=== PATIENT | female | born 1960 | race Caucasian/White ===

== ENCOUNTER 2016-08-12 21:59 | Inpatient (IN) | payer BC, MEDICAID ==
[~2016-08-12] VITALS: Ht 167.6 cm; Wt 86.2 kg
[~2016-08-12 21:59] MED LIST: ALPR0.5T6 PO; Bisacodyl PR; LORA0.5T96 PO; METH-38 PO; OXYC1TAB9 PO; POLY17PO29 PO; ZOLP10TA PO
[2016-08-12 22:33] LABS: BASO # 0.1 x10^3/uL (0.0-0.2); BASO % 1 % (0-3); EOS % 3 % (0-3); HEMATOCRIT 40.4 % (36.0-47.0); HEMOGLOBIN 13.1 g/dL (12.0-15.5); LYMPH # 3.4 x10^3/uL (1.0-4.8); LYMPH % 52 % (24-48); MEAN CORPUSCULAR HEMOGLOBIN 29 pg (25-35); MEAN CORPUSCULAR HGB CONC 33 g/dL (31-37); MEAN CORPUSCULAR VOLUME 90 fL (79-100); MONO % 10 % (0-9); NEUT % 34 % (31-73); PLATELET COUNT 226 x10^3/uL (140-400); RED BLOOD COUNT 4.49 x10^6/uL (3.50-5.40); RED CELL DISTRIBUTION WIDTH 15.2 % (11.5-14.5); WHITE BLOOD COUNT 6.5 x10^3/uL (4.0-11.0)
[2016-08-12] MEDS ORDERED: ONDANSETRON PF 4 MG/2 ML VIAL. IV ONE (23:00)
[2016-08-12] MEDS ORDERED: HYDROmorphone 2 MG/ML VIAL IV ONE (23:00)
[2016-08-12] MEDS ORDERED: KETOROLAC 15 MG/ML VIAL. IV ONE (23:00)
[2016-08-12] MEDS ORDERED: CYCLOBENZAPRINE 10 MG TABLET. PO ONE (23:00)
--- NOTE | 2016-08-12 23:18 | RAD ---
CT head without intravenous contrast History: Atraumatic neck pain and stiffness. Comparison: None. Technique: Axial images are obtained of the head from the skull base through the vertex without IV contrast. Exposure: One or more of the following individualized dose reduction techniques were utilized for this examination: 1. Automated exposure control 2. Adjustment of the mA and/or kV according to patient size 3. Use of iterative reconstruction technique Findings: The ventricles are appropriate in size, shape, and location for the patient's age. No obvious intracranial mass, mass-effect, midline shift, hemorrhage or obvious acute infarction is identified. Basilar cisterns are patent. Bone windows demonstrate no acute calvarial abnormality. The visualized paranasal sinuses appear clear. Impression: 1. No acute intracranial process. CT cervical spine Technique: Noncontrast CT of the cervical spine was performed using helical technique. Axial, sagittal, coronal reconstructions were obtained. Exposure: One or more of the following individualized dose reduction techniques were utilized for this examination: 1. Automated exposure control 2. Adjustment of the mA and/or kV according to patient size 3. Use of iterative reconstruction technique Findings: There is no evidence of acute fracture or acute malalignment involving the cervical spine. No prevertebral soft tissue swelling is identified. Multilevel degeneration is seen with facet and uncovertebral hypertrophy. This likely left neural foraminal narrowing C3-4 . Impression: 1. Relatively mild multilevel degeneration. 2. No evidence of acute traumatic injury involving the cervical spine. Electronically signed by: Ramsey Munoz MD (08/12/2016 11:14 PM)
[2016-08-12 23:49] LABS: CREATININE 1.2 mg/dL (0.6-1.0); GFR 46.1; POTASSIUM 4.1 mmol/L (3.5-5.1)
[2016-08-12 23:55] LABS: ALBUMIN 3.6 g/dL (3.4-5.0); TOTAL BILIRUBIN 0.3 mg/dL (0.2-1.0); TOTAL PROTEIN 7.1 g/dL (6.4-8.2)
[2016-08-13] VITALS (7 sets, daily range): BP systolic 82–132; BP diastolic 38–61
[2016-08-13] MEDS ORDERED: HYDROmorphone 2 MG/ML VIAL IV ONE (00:30)
[2016-08-13] MEDS ORDERED: ONDANSETRON PF 4 MG/2 ML VIAL. IV ONE (00:30)
[2016-08-13] MEDS ORDERED: ACETAMINOPHEN 325 MG TABLET. PO PRN (00:30)
--- NOTE | 2016-08-13 03:18 | PHYS DOC ---
Past Medical History Past Medical History: Anxiety, Arthritis, COPD, Fibromyalgia, Hypertension Additional Past Medical Histor: pneumonia, KIDNEY DISEASE Past Surgical History: Cholecystectomy, Hysterectomy Additional Past Surgical Histo: BENIGN TUMOR REMOVAL Alcohol Use: None Drug Use: None Adult General Chief Complaint Chief Complaint: MULTIPLE COMPLAINTS HPI HPI Patient is a 56 year old female who presents here today secondary to severe pain to her neck for approximately 2 weeks now. Patient is here with her sisters been taking care of her since then. Patient reports that about 3 days ago she fell backwards onto her bed and been having increasing pain since. Patient's sister reports that she's been taking care of her and over the last couple days she has been having a hard time walking to the bathroom secondary to the pain. Patient reports she has severe pain to her neck is unable to turn to the left or to the right. Patient denies any other symptomology. Patient has any fevers shakes chills nausea vomiting diarrhea chest pain or shortness of breath. Patient denies any recent fevers or evidence of meningitis. Patient denies any recent injuries. Patient denies any new medications. Patient's tetanus status is up-to-date. Patient reports that she spoke to Dr. Batista and she was told to come to the ER for likely admission for pain management. Patient is a history significant for bilateral tubal ligation and her gallbladder taken out. Patient reports that up until 2 weeks ago that she lives alone was able to care for self currently she is not able to manage and around anymore. Patient's physical exam was significant for tenderness to palpation to her neck. Patient has decreased range of motion secondary to discomfort and pain. Patient is neurologically intact. Patient's radial nerves to 12 are all intact. Patient has good strength in her upper or lower extremities. Patient is alert awake oriented 3. Patient's heart was regular rate and rhythm. Lungs were clear. Abdomen was benign. Patient had a CT scan of her C-spine which revealed no acute pathology. Case was discussed with Dr. Batista and he agrees with admitting patient to the hospital for further pain management. While in the ED patient received multiple doses of narcotic pain medicines as well as muscle relaxants without any significant relief in her discomfort. Patient and family requested that she be admitted. Assessment and plan 48-year-old female who presents to the ER today for further assistance with her subacute neck pain. Patient reports the pain is atraumatic. Patient's filled multiple doses of pain medicines in the ED. Patient will need to be admitted for pain control. Case was discussed with Dr. Batista and he is in agreement with the current plan. Review of Systems Review of Systems Review of symptoms Constitutional: Denies fever or chills [] Eyes: Denies change in visual acuity, redness, or eye pain [] All other review systems are negative except as documented in the history of present illness portion. Physical exam: Constitutional: Well developed, well nourished, no acute distress, non-toxic appearance. [] HENT: Normocephalic, atraumatic, Eyes: conjunctiva normal, no discharge. [] Neck: See above. Cardiovascular:Heart rate regular rhythm, Lungs & Thorax: Bilateral breath sounds clear to auscultation [] Abdomen: Bowel sounds normal, soft, no tenderness, no masses, no pulsatile masses. [] Skin: Warm, dry, Back: No tenderness, Extremities: No tenderness, no cyanosis, no clubbing, ROM intact, no edema. [] Neurologic: Alert and oriented X 3, normal motor function, normal sensory function, no focal deficits noted. [] Psychologic: Affect normal, judgement normal, mood normal. [] Current Medications Current Medications Current Medications Medications (Trade) Dose Ordered Sig/Alma Start Time Stop Time Status Last Admin Dose Admin Cyclobenzaprine HCl (Flexeril) 10 mg 1X ONCE 08/12/16 23:00 08/12/16 23:01 DC 08/12/16 22:48 10 MG Hydromorphone HCl (Dilaudid) 1 mg 1X ONCE 08/12/16 23:00 08/12/16 23:01 DC 08/12/16 22:45 1 MG Ketorolac Tromethamine (Toradol) 15 mg 1X ONCE 08/12/16 23:00 08/12/16 23:01 DC 08/12/16 22:43 15 MG Ondansetron HCl (Zofran) 4 mg 1X ONCE 08/12/16 23:00 08/12/16 23:01 DC 08/12/16 22:41 4 MG Allergies Allergies Allergies Coded Allergies Type Severity Reaction Last Updated Verified hydrocodone Adverse Reaction Intermediate Nausea and Vomiting 08/07/15 Yes ibuprofen Adverse Reaction Intermediate 08/12/16 Yes morphine Adverse Reaction Intermediate 08/12/16 Yes Current Patient Data Vital Signs Vital Signs Date Time Temp Pulse Resp B/P (MAP) Pulse Ox O2 Delivery O2 Flow Rate FiO2 08/13/16 00:00 66 124/70 (88) 95 Room Air 08/12/16 22:45 28 08/12/16 22:10 97.9 97.9 Lab Values Laboratory Tests Test 08/12/16 22:15 08/12/16 23:32 White Blood Count 6.5 x10^3/uL (4.0-11.0) Red Blood Count 4.49 x10^6/uL (3.50-5.40) Hemoglobin 13.1 g/dL (12.0-15.5) Hematocrit 40.4 % (36.0-47.0) Mean Corpuscular Volume 90 fL (79-100) Mean Corpuscular Hemoglobin 29 pg (25-35) Mean Corpuscular Hemoglobin Concent 33 g/dL (31-37) Red Cell Distribution Width 15.2 % (11.5-14.5) H Platelet Count 226 x10^3/uL (140-400) Neutrophils (%) (Auto) 34 % (31-73) Lymphocytes (%) (Auto) 52 % (24-48) H Monocytes (%) (Auto) 10 % (0-9) H Eosinophils (%) (Auto) 3 % (0-3) Basophils (%) (Auto) 1 % (0-3) Neutrophils # (Auto) 2.2 x10^3uL (1.8-7.7) Lymphocytes # (Auto) 3.4 x10^3/uL (1.0-4.8) Monocytes # (Auto) 0.6 x10^3/uL (0.0-1.1) Eosinophils # (Auto) 0.2 x10^3/uL (0.0-0.7) Basophils # (Auto) 0.1 x10^3/uL (0.0-0.2) Sodium Level 143 mmol/L (136-145) Potassium Level 4.1 mmol/L (3.5-5.1) Chloride Level 109 mmol/L (98-107) H Carbon Dioxide Level 24 mmol/L (21-32) Anion Gap 10 (6-14) Blood Urea Nitrogen 23 mg/dL (7-20) H Creatinine 1.2 mg/dL (0.6-1.0) H Estimated GFR (Cockcroft-Gault) 46.1 BUN/Creatinine Ratio 19 (6-20) Glucose Level 126 mg/dL (70-99) H Calcium Level 9.0 mg/dL (8.5-10.1) Total Bilirubin 0.3 mg/dL (0.2-1.0) Aspartate Amino Transferase (AST) 18 U/L (15-37) Alanine Aminotransferase (ALT) 21 U/L (14-59) Alkaline Phosphatase 77 U/L (46-116) Troponin I Quantitative < 0.017 ng/mL (0.000-0.055) RN-Kgm-B-Type Natriuretic Peptide 204 pg/mL (0-124) H Total Protein 7.1 g/dL (6.4-8.2) Albumin 3.6 g/dL (3.4-5.0) Albumin/Globulin Ratio 1.0 (1.0-1.7) Laboratory Tests 08/12/16 22:15 Laboratory Tests 08/12/16 23:32 EKG EKG [] Radiology/Procedures Radiology/Procedures [] Course & Med Decision Making Course & Med Decision Making Pertinent Labs and Imaging studies reviewed. (See chart for details) [] Dragon Disclaimer Dragon Disclaimer This electronic medical record was generated, in whole or in part, using a voice recognition dictation system. Departure Departure Impression: Primary Impression: Chest pain Additional Impression: Intractable pain Disposition: ADMITTED INPATIENT Admitting Physician: Billy Batista Condition: STABLE Referrals: FROY BATISTA MD (PCP) Problem Qualifiers LAURO RAMOS MD Aug 13, 2016 03:17
[2016-08-13] MEDS: ONDANSETRON PF 4 MG/2 ML VIAL. IV PRN ×2 (06:45→17:23)
[2016-08-13] MEDS: fentaNYL PF VIAL 100 MCG/2 ML VIAL IV PRN ×3 (08:15→13:47)
--- NOTE | 2016-08-13 08:44 | RAD ---
EXAM: Chest one view. HISTORY: Chest pain, fall. COMPARISON: 08/06/2015. FINDINGS: A frontal view of the chest is obtained. Linear opacity along the left heart border has a correlate on the 05/30/2015 study and is likely epicardial fat pad/scarring. There is no pneumothorax or pleural effusion. The heart is not enlarged. There is a chronic healed right rib fracture. IMPRESSION: 1. No confluent infiltrates.
--- NOTE | 2016-08-13 09:00 | ACF ---
Admission Forms Criteria CHEST PAIN Clinical Indications for Admission to Inpatient Care (Place 'X' for any and all applicable criteria): Admission is indicated for chest pain and ANY ONE of the following(1)(2)(3)(4)(5 ): [ ]I. Angina with acute coronary syndrome (Also use Myocardial Infarction or Angina guideline) [ ]II. Hemodynamic instability [ ]III. Angina needing acute intervention as indicated by ALL of the following( 11)(12): [ ]a) Unstable angina is present as indicated by angina that is ANY ONE of the following: [ ]i) New onset [ ]ii) Nocturnal [ ]iii) Prolonged at rest [ ]iv) Progressive [ ]b) Angina warrants acute intervention as indicated by ANY ONE of the following: [ ]i) Recurrent angina (e.g, not responding as previously to treatment) [ ]ii) Angina at rest or with low-level activities despite initial medical therapy [ ]iii) New or presumably new ST-segment depression on ECG [ ]iv) Signs or symptoms of heart failure (eg, dyspnea, pulmonary edema) [ ]v) New or worsening mitral regurgitation [ ]vi) Hemodynamic instability [ ]vii) Dangerous arrhythmia (eg, sustained ventricular tachycardia) [ ]viii) History of percutaneous coronary intervention within 6 months [ ]ix) History of coronary artery bypass graft surgery [ ]x) ROSA ISELA risk score of 2 or greater[A] [ ]xi) History of Diabetes(14) [ ]xii) High-risk cardiac ischemia findings on noninvasive testing (e.g, echocardiogram, treadmill testing, nuclear scan) [ ]xiii) Chronic renal insufficiency (ie, estimated GFR less than 60 mL/min/1.732m) [ ]xiv) Left ventricular ejection fraction less than 40% [ ]IV. Evidence of GA (eg, cardiac biomarkers positive, ST-segment elevation on ECG) also use Myocardial Infarction Criteria Form. [ ]V. Pulmonary edema [ ]. Respiratory distress [ ]VII. Chest pain indicative of serious diagnosis other than coronary artery disease (eg, aortic dissection) [ ]VIII. Contraindications and/or Inappropriate clinical situations for Observational Care in patients with Chest Pain, when ANY ONE of the following is required: [ ]a) Patient with risk factor for pulmonary embolism, acute coronary syndrome and myocardial infarction (18) [ ]b) Patient with Pulmonary embolism require an average LOS of 4.3 days, therefore emergency department observation management is inappropriate 18,23 [ ]c) Painful condition/s in the elderly, have the highest rate of recidivism after emergency department observation management (10.8%) 20,21,22 [ ]d) Elevated cardiac biomarker requires intensive and exhaustive care (19) [X]IX. General contraindications and/or Inappropriate clinical situations for Observational Care in patients with Chest Pain, when ANY ONE of the following is required: [X]a) Prediction of prolongation of LOS based on ANY ONE of the following may be considered as a contraindication for observational care 2, 3, 4, 5, 6, 7, 8, 9, 10, 11 [ ]i) Age > 65 yrs. [ ]ii) Patient arriving by ambulance [ ]iii) Patient with high acuity [ ]iv) Patient requiring vital sign monitoring [X]v) Patient on IV medication [ ]b) Systolic blood pressures 180mmHg 3,12 [ ]c) Patient with altered mental status including delirium and other alteration of consciousness, (3) [ ]d) Patient whose discharge disposition will be to a retirement home or rehabilitation home should not be managed in Emergency Department Observation Unit. CMS rule requires 3 days hospital stay before such placement. 3,13 [ ]e) Patient with failure to thrive due to broad array of etiologies 3,16,17 [ ]f) Inability to ambulate 3,14 Extended stay beyond goal length of stay may be needed for (1)(28): [ ]a) Specific condition diagnosed after evaluation (eg, pulmonary embolism, aortic dissection) [ ]b) Unstable angina [ ]c) Continued suspicion of acute coronary syndrome with inability to complete needed cardiac evaluation (eg, patient clinically unable to undergo stress testing) [ ]d) Myocardial infarction (Contents from ANGINA and CHEST PAIN clinical indications for admission to inpatient care have been integrated in this form) The original [facility] content created by [employer] has been revised. The portions of the content which have been revised are identified through the use of italic text or in bold, and [facility] has neither reviewed nor approved the modified material. All other unmodified content is copyright [facility]. Please see references footnoted in the original [facility] edition 2016 Admission Criteria Met?: Yes ANITA BAKER Aug 13, 2016 09:00
[2016-08-13] MEDS ORDERED: ZOLP10TA PO (10:21)
[2016-08-13] MEDS ORDERED: DICL1TAB5 PO (10:21)
[2016-08-13] MEDS ORDERED: FOLI1TAB16 PO (10:21)
[2016-08-13] MEDS ORDERED: METH2.5T PO (10:21)
[2016-08-13] MEDS ORDERED: LOSA50TA2 PO (10:21)
[2016-08-13] MEDS ORDERED: oxyCODONE/APAP 10/325 1 TAB TABLET PO PRN (10:30)
[2016-08-13] MEDS ORDERED: LOSARTAN POTASSIUM 50 MG TABLET. PO SCH (12:00)
[2016-08-13] MEDS ORDERED: FOLIC ACID 1 MG TABLET. PO SCH (12:00)
[2016-08-13] MEDS: ASPIRIN/DIPYRIDAMOLE 200/25MG CAP.ER.12H. PO SCH ×2 (12:05→21:00)
--- NOTE | 2016-08-13 12:13 | EKG ---
[facility] [address] [place] [address] Test Date: 2016-08-12 Test Time: 22:12:13 Pat Name: LITZY ZULETA Department: Room: 426 1 Gender: F Bee Raiser: : 1960 Requested By: LAURO RAMOS Order Number: [id number] Reading MD: Robert Franz Measurements Intervals [place] Rate: 76 P: 34 LA: 128 QRS: 38 QRSD: 128 T: 24 QT: 448 QTc: 509 Interpretive Statements SINUS ARRHYTHMIA COMPLEX(ES) WITH ABERRANT INTRAVENTRICULAR CONDUCTION VENTRICULAR PREMATURE COMPLEX(ES) LEFT BUNDLE BRANCH BLOCK ABNORMAL ECG RI6.01 Compared to ECG 08/06/2015 05:21:53 Left bundle-branch block now present Sinus rhythm no longer present Electronically Signed On 08-15-2016 10:49:03 CDT by Robert Franz
[2016-08-13] MEDS: LIDOCAINE (700MG/PATCH) PATCH. TD SCH (12:20)
[2016-08-13] MEDS ORDERED: BUPIVACAINE MPF 0.25% 10 ML VIAL. IJ ONE (12:45)
[2016-08-13] MEDS ORDERED: methylPREDNISolone ACETATE 40 MG/ML VIAL. IM ONE (12:45)
--- NOTE | 2016-08-13 13:10 | PDOC4 ---
PROCEDURE Procedure At her request,I have injected painful trigger points over right cervical paraspinal muscles with marcaine and depomedrol solution under aseptic skin technique and she tolerated the procedure satisfactorily without any side effects MARY MENDEZ MD Aug 13, 2016 13:10
[2016-08-13] MEDS ORDERED: BUTALB/APAP/CAFEIN 50/325/40MG TABLET. PO PRN (13:15)
--- NOTE | 2016-08-13 13:23 | HP ---
ADMIT DATE: 08/13/2016 ADMISSION DIAGNOSES: 1. Chest pain. 2. Acute torticollis. HISTORY OF PRESENT ILLNESS: This is a 56-year-old white female who over the last 3 days has developed a severe neck pain and has been unable to move her neck. Her sister has been caring for her and she called last evening because she was no longer able to do so. She wanted to bring the patient to the ER for some pain relief, which was done. While in the Emergency Room, review of systems revealed the patient also been having some intermittent chest pain. Her proBNP was a little bit elevated, but despite cyclobenzaprine, hydromorphone IV, ketorolac IV, and Zofran for pain induced vomiting. ER was unable to control her pain. She was hypertensive and with her complaints of chest pain was admitted for further evaluation and treatment. She is still in pain, but the IV meds have ____ some. She ____ turn her head or move her shoulders at this point. She does not seem to have any further chest pain, nausea or vomiting. Her cardiac enzymes are normal. PAST MEDICAL HISTORY: Anxiety, arthritis, COPD, fibromyalgia, hypertension, recently diagnosed stage 3 chronic kidney disease. She has had pneumonia in the past. PAST SURGICAL HISTORY: Include cholecystectomy, hysterectomy, benign tumor removal. SOCIAL HISTORY: Negative for alcohol. Positive for tobacco. ALLERGIES: SHE HAS ALLERGIES TO HYDROCODONE AND MORPHINE. SHE HAS A GI INTOLERANCE TO IBUPROFEN AND IT AGGRAVATED HER CHRONIC RENAL DISEASE. HOME MEDICATIONS: Include alprazolam 0.5 mg t.i.d., losartan 50 mg daily, oxycodone ____ one q.i.d., MiraLax p.r.n., Ambien 10 mg p.r.n., Dulcolax p.r.n. FAMILY HISTORY: Fibromyalgia. REVIEW OF SYSTEMS: GENERAL: Acute pain as mentioned above, she has been taken off of methotrexate due to intolerance. She has not had any headache or viral symptoms. She has had nausea and vomiting related to pain, chest pain, somewhat atypical, nonexertional. LUNGS: She has not had any significant cough or pulmonary symptoms. GASTROINTESTINAL: No diarrhea or constipation has been controlled with medications. SKIN: No rashes or bruising. MUSCULOSKELETAL: Osteoarthritis, rheumatoid arthritis, fibromyalgia. NEUROLOGIC: No headaches or seizures. PSYCHIATRIC: Anxiety. CONSTITUTIONAL: No fever, chills or weight loss. PHYSICAL EXAMINATION: VITAL SIGNS: She is afebrile since admission. Heart rate is normal. Blood pressure is normal. Room air pulse oximetry is 92%. GENERAL: She is unable to move her neck: There is tightness in her posterior neck strap muscles and trapezius muscles. There are no meningeal signs. HEENT: Her head is tilted just slightly to the left. She is able to open her jaw or ocular muscles are intact. Her other facial muscles are intact. Tongue is midline. Field Sales Representative is normal. EXTREMITIES: Elbow strength is normal. She is unable to elevate her shoulders though and shrugged her shoulders due to pain and spasm. CARDIOVASCULAR: Heart regular rate and rhythm without murmur noted. LUNGS: Clear anteriorly. ABDOMEN: Soft, nondistended, nontender. There is no abnormality in the lower extremities. LABORATORY DATA: Chemistries are unremarkable with the exception of her proBNP that is elevated at 204. Cardiac enzymes are normal. CBC is unremarkable. Her creatinine was 1.2. Her BUN is 23, which gives her EGFR 46, glucose was 126. IMAGING STUDIES: Chest x-ray showed the heart to be not enlarged and there is a chronic healed right rib fracture. CT imaging of her head and spine showed relatively mild multilevel degeneration without acute traumatic injury noted, the degeneration is in the facet area with uncovertebral hypertrophy and neuroforaminal narrowing at C3-C4, no abnormalities of the brain were noted. Sinuses were unremarkable. ASSESSMENT: 1. Atypical chest pain with elevated proBNP. 2. Acute torticollis with inability to turn her head or raise her shoulders. 3. Fibromyalgia. 4. Osteoarthritis/rheumatoid arthritis/fibromyalgia. 5. History of anxiety. 6. Stage 3 chronic kidney disease. 7. Hypertension, controlled. PLAN: She is admitted for intractable pain and IV pain control. Further evaluation of her chest pain with a cardiac consultation and echocardiogram. Her enzymes are negative. We will ask ____ also see, we will place a Lidoderm patch. Continue her muscle relaxers. She did not tolerate methotrexate as an outpatient, so she does not need folic acid, so we will hold those, treat her nausea and continue her Percocet. Khadra BATISTA MD DR: ALLY/funmilayo JOB#: [id number] / [id number]
[2016-08-13] MEDS: tiZANidine 4 MG TABLET. PO SCH ×2 (13:47→21:02)
[2016-08-13] MEDS: ALPRAZolam 0.5 MG TABLET PO SCH ×2 (13:47→21:02)
[2016-08-13] MEDS: HYDROmorphone 2 MG/ML VIAL IVP PRN (16:29)
[2016-08-13] MEDS: PANTOPRAZOLE 40 MG TABLET.DR. PO SCH (17:21)
--- NOTE | 2016-08-13 17:22 | CONS ---
DATE OF CONSULTATION: 08/13/2016 ATTENDING PHYSICIAN: Dr. Sin Lawson. I saw her at the request of Dr. Lawson for evaluation about neck pain and stiffness. HISTORY OF PRESENT ILLNESS: This is a 56-year-old female on disability with history of anxiety, rheumatoid arthritis, chronic obstructive pulmonary disease, fibromyalgia, hypertension, pneumonia, chronic kidney disease, cholecystectomy, hysterectomy and benign tumor removal. The patient is known allergic to hydrocodone, ibuprofen and morphine which seemed to be more like a side effect rather than allergy. They upset her stomach, make her sick. The patient has been taking Percocet 10/325 mg 4 times a day prior to the present hospitalization. She admits to pain in her neck with associated stiffness and headaches going on for about 2 weeks. She denies any radiation of pain to the extremities or any tingling and numbness sensation in the extremities. The patient had CT scan of her brain and cervical spine, which failed to reveal any acute abnormality. It revealed multilevel degenerative changes mainly ____ degenerative changes and uncovertebral hypertrophy, might be mild left neural foraminal narrowing at C3-C4. PHYSICAL EXAMINATION: Today revealed a middle-aged female. She is alert, in no acute distress. She is cooperative during the examination. She keeps her neck really stiff and significant pain at attempts at movement of her neck. She had tenderness to palpation over cervical paraspinal muscles extending out posterior shoulder girdle muscles, right side more than left side. She had normal neurological examination on both upper and lower extremities including sensory, motor and reflex examination. She is independent with bed mobility and transfers. I have not tested her ambulation skills at this time. Her skin is intact at this time. She had moderate degree of cervical paraspinal muscle spasm. ASSESSMENT: A middle-aged female with exacerbation of her chronic neck pain from degenerative joint disease of cervical vertebrae without any clinical evidence of cervical radiculopathy. The patient with history of chronic obstructive pulmonary disease, rheumatoid arthritis, fibromyalgia, hypertension and anxiety and chronic kidney disease. RECOMMENDATIONS: To try her on oral prednisone, Protonix and tizanidine on a regular basis to have physical therapy to try physical modalities, to try soft cervical collar, as she is keeping her neck so stiff, to proceed with trigger point injections to her cervical paraspinal muscles. Dr. Lawson, I appreciate asking me to participate in the care of this interesting patient. I will be glad to follow her with you as needed for her rehabilitation, hopefully home with outpatient followup when medically stable in the next day or so. MARY MENDEZ MD DR: DHAVAL/funmilayo JOB#: [id number] / [id number]
[2016-08-13] MEDS: ZOLPIDEM 5 MG TABLET. PO SCH (21:02)
[2016-08-13] MEDS: LOSARTAN POTASSIUM 50 MG TABLET. PO SCH (21:02)
[2016-08-14 03:09] VITALS: BP 97/45
[2016-08-14] MEDS: HYDROmorphone 2 MG/ML VIAL IVP PRN ×4 (04:45→21:19)
[2016-08-14] MEDS: tiZANidine 4 MG TABLET. PO SCH ×3 (06:00→21:19)
[2016-08-14 07:00] VITALS: BP 86/45
[2016-08-14] MEDS: PANTOPRAZOLE 40 MG TABLET.DR. PO SCH (07:30)
[2016-08-14] MEDS: ASPIRIN/DIPYRIDAMOLE 200/25MG CAP.ER.12H. PO SCH (09:00)
[2016-08-14] MEDS: ALPRAZolam 0.5 MG TABLET PO SCH ×3 (09:00→21:00)
[2016-08-14] MEDS: predniSONE 10 MG TABLET PO SCH (09:00)
[2016-08-14] MEDS: LIDOCAINE (700MG/PATCH) PATCH. TD SCH (09:00)
[2016-08-14 11:00] VITALS: BP 126/55
--- NOTE | 2016-08-14 11:41 | PDOC2 ---
CONSULT Date of Consult Date of Consult DATE: 08/14/16 TIME: 11:41 Reason for Consult Reason for Consult: Chest pain Referring Physician Referring Physician: Dr. Lawson Identification/Chief Complaint Chief Complaint Chest pain Source Source: Chart review, Patient History of Present Illness Reason for Visit: 56-year-old female without any previous history of coronary artery disease presented with three-day history of severe neck pain and was diagnosed with torticollis. In the ED, she was complaining of intermittent retrosternal chest pain not related to exertion and that started after nausea/vomiting. She denied any palpitations or syncope. Past Medical History Cardiovascular: HTN Pulmonary: COPD CENTRAL NERVOUS SYSTEM: Other GI: No pertinent hx Heme/Onc: No pertinent hx Hepatobiliary: No pertinent hx Psych: Anxiety Musculoskeletal: Osteoarthritis Rheumatologic: Fibromyalgia, Rheumatoid arthritis Infectious disease: No pertinent hx Renal/: No pertinent hx Past Surgical History Past Surgical History: Appendectomy, Hysterectomy, Other Family History Family History: Coronary Artery Disease, Diabetes Social History ALCOHOL: none Drugs: None Lives: with Family Current Problem List Problem List Problems Medical Problems: (1) Chest pain Status: Acute (2) Intractable pain Status: Acute Current Medications Current Medications Current Medications Ondansetron HCl (Zofran) 4 mg 1X ONCE IV Last administered on 08/12/16 22:41 ; Start 08/12/16 at 23:00; Stop 08/12/16 at 23:01; Status DC Hydromorphone HCl (Dilaudid) 1 mg 1X ONCE IV Last administered on 08/12/16 22 :45; Start 08/12/16 at 23:00; Stop 08/12/16 at 23:01; Status DC Cyclobenzaprine HCl (Flexeril) 10 mg 1X ONCE PO Last administered on 22:48; Start 08/12/16 at 23:00; Stop 08/12/16 at 23:01; Status DC Ketorolac Tromethamine (Toradol) 15 mg 1X ONCE IV Last administered on 22:43; Start 08/12/16 at 23:00; Stop 08/12/16 at 23:01; Status DC Ondansetron HCl (Zofran) 4 mg 1X ONCE IV Last administered on 08/13/16 02:06 ; Start 08/13/16 at 00:30; Stop 08/13/16 at 00:31; Status DC Hydromorphone HCl (Dilaudid) 1 mg 1X ONCE IV Last administered on 08/13/16 02 :06; Start 08/13/16 at 00:30; Stop 08/13/16 at 00:31; Status DC Ondansetron HCl (Zofran) 4 mg PRN Q8HRS PRN IV NAUSEA/VOMITING Last administered on 08/13/16 17:23; Start 08/13/16 at 00:30; Stop 08/14/16 at 00:29 ; Status DC Fentanyl Citrate (Fentanyl 2ml Vial) 50 mcg PRN Q2HR PRN IV SEVERE PAIN Last administered on 08/13/16 13:47; Start 08/13/16 at 00:30; Stop 08/14/16 at 00:29 ; Status DC Acetaminophen (Tylenol) 650 mg PRN Q4HRS PRN PO FEVER; Start 08/13/16 at 00:30 ; Stop 08/14/16 at 00:29; Status DC Alprazolam (Xanax) 0.5 mg TID PO Last administered on 08/13/16 21:02; Start at 14:00 Folic Acid (Folic Acid) 1 mg DAILY PO ; Start 08/13/16 at 12:00; Stop 08/13/16 at 12:06; Status DC Losartan Potassium (Cozaar) 50 mg DAILY PO ; Start 08/13/16 at 12:00; Stop 08/13 at 12:00; Status DC Methotrexate (Rheumatrex) 12.5 mg WEEKLY PO ; Start 08/20/16 at 09:00; Status UNV Oxycodone/ Acetaminophen (Percocet 10/325) 1 tab PRN QID PRN PO PAIN Last administered on 08/14/16 02:22; Start 08/13/16 at 10:30; Stop 08/14/16 at 10:56 ; Status DC Dipyridamole/ Aspirin (Aggrenox) 1 cap BID PO Last administered on 08/13/16 12 :05; Start 08/13/16 at 12:00; Stop 08/14/16 at 10:56; Status DC Zolpidem Tartrate (Ambien) 5 mg QHS PO Last administered on 08/13/16 21:02; Start 08/13/16 at 21:00 Losartan Potassium (Cozaar) 50 mg QHS PO Last administered on 08/13/16 21:02; Start 08/13/16 at 21:00 Lidocaine (Lidoderm) 1 patch DAILY TD Last administered on 08/13/16 12:20; Start 08/13/16 at 12:30 Methylprednisolone Acetate (DEPO-Medrol 40MG VIAL) 40 mg 1X ONCE IM Last administered on 08/13/16 12:45; Start 08/13/16 at 12:45; Stop 08/13/16 at 12:57 ; Status DC Bupivacaine HCl (Sensorcaine-Mpf 0.25%) 10 ml 1X ONCE IJ Last administered on 08/13/16 12:45; Start 08/13/16 at 12:45; Stop 08/13/16 at 12:57; Status DC Prednisone (Prednisone) 10 mg DAILY PO ; Start 08/14/16 at 09:00 Pantoprazole Sodium (Protonix) 40 mg DAILYAC PO Last administered on 08/13/16 17:21; Start 08/13/16 at 16:30 Tizanidine HCl (Zanaflex) 4 mg Q8HRS PO Last administered on 08/13/16 21:02; Start 08/13/16 at 14:00 Acetaminophen/ Butalbital/ Caffeine (Fioricet) 2 tab PRN Q6HRS PRN PO MIGRAINE HEADACHE; Start 08/13/16 at 13:15 Hydromorphone HCl (Dilaudid) 1 mg PRN Q2HR PRN IVP PAIN Last administered on 10:57; Start 08/13/16 at 16:00 Sucralfate (Carafate) 1 gm QIDACHS PO ; Start 08/14/16 at 11:30 Active Scripts Active [Bisacodyl] 10 MG Supp.rect 10 Mg OR PRN DAILY PRN Miralax (Polyethylene Glycol 3350) 17 Gm Powd.pack 17 Gm PO DAILY Reported Folic Acid 1 Mg Tablet 1 Tab PO DAILY Ambien (Zolpidem Tartrate) 10 Mg Tablet 1 Tab PO QHS Cozaar (Losartan Potassium) 50 Mg Tablet 50 Mg PO DAILY Alprazolam 0.5 Mg Tablet 1 Tab PO TID Oxycodone-Acetaminophen 10-325 (Oxycodone Hcl/Acetaminophen) 1 Each Tablet 1 Tab PO QID PRN Allergies Allergies: Coded Allergies: No Known Medication Allergies (Verified Allergy, Unknown, 08/14/16) hydrocodone (Verified Adverse Reaction, Intermediate, Nausea and Vomiting , 08/07/15) ibuprofen (Verified Adverse Reaction, Intermediate, 08/12/16) morphine (Verified Adverse Reaction, Intermediate, 08/12/16) ROS PSYCHOLOGICAL ROS: No: Hallucinations Eyes: No Loss of vision HEENT: No: Epistaxis Respiratory: No: Hemoptysis, Shortness of breath Cardiovascular: yes Chest Pain Gastrointestinal: Yes Nausea, Yes Vomiting Genitourinary: No Hematuria Neurological: No Seizures Skin: No Rash Vitals VITALS Vital Signs Date Time Temp Pulse Resp B/P (MAP) Pulse Ox O2 Delivery O2 Flow Rate FiO2 08/14/16 11:00 98.5 64 18 126/55 (78) 95 Room Air 98.5 Labs Labs Laboratory Tests Test 08/12/16 22:15 08/12/16 23:32 White Blood Count 6.5 x10^3/uL (4.0-11.0) Red Blood Count 4.49 x10^6/uL (3.50-5.40) Hemoglobin 13.1 g/dL (12.0-15.5) Hematocrit 40.4 % (36.0-47.0) Mean Corpuscular Volume 90 fL (79-100) Mean Corpuscular Hemoglobin 29 pg (25-35) Mean Corpuscular Hemoglobin Concent 33 g/dL (31-37) Red Cell Distribution Width 15.2 % (11.5-14.5) Platelet Count 226 x10^3/uL (140-400) Neutrophils (%) (Auto) 34 % (31-73) Lymphocytes (%) (Auto) 52 % (24-48) Monocytes (%) (Auto) 10 % (0-9) Eosinophils (%) (Auto) 3 % (0-3) Basophils (%) (Auto) 1 % (0-3) Neutrophils # (Auto) 2.2 x10^3uL (1.8-7.7) Lymphocytes # (Auto) 3.4 x10^3/uL (1.0-4.8) Monocytes # (Auto) 0.6 x10^3/uL (0.0-1.1) Eosinophils # (Auto) 0.2 x10^3/uL (0.0-0.7) Basophils # (Auto) 0.1 x10^3/uL (0.0-0.2) Sodium Level 143 mmol/L (136-145) Potassium Level 4.1 mmol/L (3.5-5.1) Chloride Level 109 mmol/L (98-107) Carbon Dioxide Level 24 mmol/L (21-32) Anion Gap 10 (6-14) Blood Urea Nitrogen 23 mg/dL (7-20) Creatinine 1.2 mg/dL (0.6-1.0) Estimated GFR (Cockcroft-Gault) 46.1 BUN/Creatinine Ratio 19 (6-20) Glucose Level 126 mg/dL (70-99) Calcium Level 9.0 mg/dL (8.5-10.1) Total Bilirubin 0.3 mg/dL (0.2-1.0) Aspartate Amino Transf (AST/SGOT) 18 U/L (15-37) Alanine Aminotransferase (ALT/SGPT) 21 U/L (14-59) Alkaline Phosphatase 77 U/L (46-116) Troponin I Quantitative < 0.017 ng/mL (0.000-0.055) TD-Tmc-G-Type Natriuretic Peptide 204 pg/mL (0-124) Total Protein 7.1 g/dL (6.4-8.2) Albumin 3.6 g/dL (3.4-5.0) Albumin/Globulin Ratio 1.0 (1.0-1.7) Assessment/Plan Assessment/Plan 1. Chest pain with atypical features: Myocardial infarction was ruled out. NT -proBNP slightly elevated but within normal range for age. Chest pain most probably GI etiology since this started after nausea/vomiting. We will check 2- D echo to assess LV systolic function and rule out wall motion abnormalities. 2. Acute torticollis: Treated per IM 3. Hypertension: Well-controlled Thank you for your consultation TREY SARMIENTO MD Aug 14, 2016 11:41
--- NOTE | 2016-08-14 12:09 | EKG ---
[facility] [address] [place] [address] Test Date: 2016-08-14 Test Time: 11:01:04 Pat Name: LITZY ZULETA Department: Room: 426 1 Gender: F Policy And Planning Manager: : 1960 Requested By: FROY BATISTA Order Number: [id number] Reading MD: Robert Franz Measurements Intervals [place] Rate: 57 P: 35 MD: 130 QRS: 43 QRSD: 90 T: 35 QT: 568 QTc: 557 Interpretive Statements SINUS ARRHYTHMIA VENTRICULAR PREMATURE COMPLEX(ES) QRS(T) CONTOUR ABNORMALITY CONSIDER INFERIOR MYOCARDIAL DAMAGE PROLONGED QT ABNORMAL ECG RI6.01 Unconfirmed report Electronically Signed On 08-15-2016 11:04:45 CDT by Robert Franz
[2016-08-14] MEDS: SUCRALFATE 1 GM TABLET. PO SCH ×3 (12:23→21:18)
[2016-08-14 15:00] VITALS: BP 115/61
[2016-08-14] MEDS: ENOXAPARIN 40 MG/0.4 ML SYRINGE. SQ SCH (15:34)
[2016-08-14 19:05] VITALS: BP 111/54
[2016-08-14] MEDS: ZOLPIDEM 5 MG TABLET. PO SCH (21:18)
[2016-08-14] MEDS: LOSARTAN POTASSIUM 50 MG TABLET. PO SCH (21:19)
--- NOTE | 2016-08-14 22:39 | PN ---
DATE: 08/14/2016 SUBJECTIVE: Still nauseated with pain medicines p.o., but tolerating IV Dilaudid, which controls her pain. She is still having pain in her neck and she is able to move her neck somewhat today with still very limited range of motion. She was still vomiting last night, still on clear liquids and crackers. Still having intermittent chest pain, intermittent heartburn. She did not get any significant relief from Dr. Smyth's trigger point injection yesterday. The Lidoderm patch did not give her significant relief. No GI or symptoms. No shortness of breath. No lower extremity pain or weakness. OBJECTIVE: VITAL SIGNS: Temperature 98.4, pulse 52, blood pressure 86/45 this morning, but 120/66 most recently. Room air oxygen saturations ranged from 90-100%. GENERAL: She is still comfortable, face looking straight ahead, but she has got limited range of motion of her neck. She can look up and down approximately 10-20 degrees and turn side to side 10-20 degrees. There is ____ much tightness on palpation of her posterior neck and trapezius muscles, though anterior neck is nontender. No thyromegaly. She is swallowing without difficulty. Mucous membranes are moist. HEART: Regular rate and rhythm. No chest wall pain is elicited. LUNGS: Clear anteriorly. ABDOMEN: Soft, nondistended. There is no epigastric pain. EXTREMITIES: Without clubbing, cyanosis or edema. SKIN: Color and turgor are normal. LABORATORY DATA: No new labs. ASSESSMENT: 1. ____ 2. Chest pain. 3. Intractable nausea and vomiting. 4. History of fibromyalgia, rheumatoid arthritis, osteoarthritis. 5. Anxiety. 6. Hypertension. PLAN: I will continue to optimize pain control without lowering her blood pressure or heart rate too much. Cardiology consult is pending. Echo from a year ago showed no significant abnormalities. Repeats requested since her BNP was elevated. We will get a second set of enzymes since she is still having some chest pain, although still atypical. She may need pain management consultation possibly a cervical epidural steroid, but she is likely to refuse that injection, she may benefit from Botox injection. I appreciate Dr. Smyth's help with her care. We will stop her Percocet as it seems to be contributing to her nausea. We will stop her aspirin containing meds for her seem to be contributing to her nausea. She will remain on prednisone for her neck, though along with her PPI and we will add Carafate 1 g a.c. and at bedtime. W Jaspreet BATISTA MD DR: ALLY/funmilayo JOB#: [id number] / [id number]
[2016-08-14 23:21] VITALS: BP 100/47
[2016-08-15 03:03] VITALS: BP 143/56
[2016-08-15] MEDS: PANTOPRAZOLE 40 MG TABLET.DR. PO SCH (06:10)
[2016-08-15] MEDS: HYDROmorphone 2 MG/ML VIAL IVP PRN ×2 (06:11→06:46)
[2016-08-15] MEDS: SUCRALFATE 1 GM TABLET. PO SCH ×2 (06:16→12:20)
[2016-08-15] MEDS: tiZANidine 4 MG TABLET. PO SCH ×2 (06:16→12:21)
[2016-08-15 07:00] VITALS: BP 99/66
[2016-08-15] MEDS ORDERED: HYDROmorphone 2 MG TABLET PO PRN (08:45)
[2016-08-15] MEDS: LIDOCAINE (700MG/PATCH) PATCH. TD SCH (09:00)
[2016-08-15] MEDS: ALPRAZolam 0.5 MG TABLET PO SCH ×2 (09:05→14:23)
[2016-08-15] MEDS: predniSONE 10 MG TABLET PO SCH (09:05)
--- NOTE | 2016-08-15 09:24 | PDOC ---
PROGRESS NOTES Subjective Subjective She feels better and planning to go home but concerned about going home with dilaudid and instead wants higher dose of oxycodone. Objective Objective Vital Signs Date Time Temp Pulse Resp B/P (MAP) Pulse Ox O2 Delivery O2 Flow Rate FiO2 08/15/16 07:00 97.9 40 18 99/66 (77) 93 Room Air 97.9 Intake and Output 08/15/16 07:00 Intake Total 700 ml Balance 700 ml Intake Oral 700 ml # Voids 2 Physical Exam Physical Exam She still had tenderness to palpation over cervical paraspinal muscles but moving her neck better. Assessment Assessment Problems Medical Problems: (1) Chest pain Status: Acute (2) Intractable pain Status: Acute Plan Plan of Care She feels comfortable with her exercise program and does not want to try out patient physical therapy at present time. Comment Review of Relevant I have reviewed the following items rylee (where applicable) has been applied. Labs Laboratory Tests Test 08/14/16 11:15 Troponin I Quantitative < 0.017 ng/mL (0.000-0.055) Laboratory Tests Test 08/14/16 11:15 Troponin I Quantitative < 0.017 ng/mL (0.000-0.055) Medications Current Medications Ondansetron HCl (Zofran) 4 mg 1X ONCE IV Last administered on 08/12/16 22:41 ; Start 08/12/16 at 23:00; Stop 08/12/16 at 23:01; Status DC Hydromorphone HCl (Dilaudid) 1 mg 1X ONCE IV Last administered on 08/12/16 22 :45; Start 08/12/16 at 23:00; Stop 08/12/16 at 23:01; Status DC Cyclobenzaprine HCl (Flexeril) 10 mg 1X ONCE PO Last administered on 22:48; Start 08/12/16 at 23:00; Stop 08/12/16 at 23:01; Status DC Ketorolac Tromethamine (Toradol) 15 mg 1X ONCE IV Last administered on 22:43; Start 08/12/16 at 23:00; Stop 08/12/16 at 23:01; Status DC Ondansetron HCl (Zofran) 4 mg 1X ONCE IV Last administered on 08/13/16 02:06 ; Start 08/13/16 at 00:30; Stop 08/13/16 at 00:31; Status DC Hydromorphone HCl (Dilaudid) 1 mg 1X ONCE IV Last administered on 08/13/16 02 :06; Start 08/13/16 at 00:30; Stop 08/13/16 at 00:31; Status DC Ondansetron HCl (Zofran) 4 mg PRN Q8HRS PRN IV NAUSEA/VOMITING Last administered on 08/13/16 17:23; Start 08/13/16 at 00:30; Stop 08/14/16 at 00:29 ; Status DC Fentanyl Citrate (Fentanyl 2ml Vial) 50 mcg PRN Q2HR PRN IV SEVERE PAIN Last administered on 08/13/16 13:47; Start 08/13/16 at 00:30; Stop 08/14/16 at 00:29 ; Status DC Acetaminophen (Tylenol) 650 mg PRN Q4HRS PRN PO FEVER; Start 08/13/16 at 00:30 ; Stop 08/14/16 at 00:29; Status DC Alprazolam (Xanax) 0.5 mg TID PO Last administered on 08/15/16 09:05; Start at 14:00 Folic Acid (Folic Acid) 1 mg DAILY PO ; Start 08/13/16 at 12:00; Stop 08/13/16 at 12:06; Status DC Losartan Potassium (Cozaar) 50 mg DAILY PO ; Start 08/13/16 at 12:00; Stop 08/13 at 12:00; Status DC Methotrexate (Rheumatrex) 12.5 mg WEEKLY PO ; Start 08/20/16 at 09:00; Status UNV Oxycodone/ Acetaminophen (Percocet 10/325) 1 tab PRN QID PRN PO PAIN Last administered on 08/14/16 02:22; Start 08/13/16 at 10:30; Stop 08/14/16 at 10:56 ; Status DC Dipyridamole/ Aspirin (Aggrenox) 1 cap BID PO Last administered on 08/13/16 12 :05; Start 08/13/16 at 12:00; Stop 08/14/16 at 10:56; Status DC Zolpidem Tartrate (Ambien) 5 mg QHS PO Last administered on 08/14/16 21:18; Start 08/13/16 at 21:00 Losartan Potassium (Cozaar) 50 mg QHS PO Last administered on 08/14/16 21:19; Start 08/13/16 at 21:00 Lidocaine (Lidoderm) 1 patch DAILY TD Last administered on 08/13/16 12:20; Start 08/13/16 at 12:30 Methylprednisolone Acetate (DEPO-Medrol 40MG VIAL) 40 mg 1X ONCE IM Last administered on 08/13/16 12:45; Start 08/13/16 at 12:45; Stop 08/13/16 at 12:57 ; Status DC Bupivacaine HCl (Sensorcaine-Mpf 0.25%) 10 ml 1X ONCE IJ Last administered on 08/13/16 12:45; Start 08/13/16 at 12:45; Stop 08/13/16 at 12:57; Status DC Prednisone (Prednisone) 10 mg DAILY PO Last administered on 08/15/16 09:05; Start 08/14/16 at 09:00 Pantoprazole Sodium (Protonix) 40 mg DAILYAC PO Last administered on 08/15/16 06:10; Start 08/13/16 at 16:30 Tizanidine HCl (Zanaflex) 4 mg Q8HRS PO Last administered on 08/15/16 06:16; Start 08/13/16 at 14:00 Acetaminophen/ Butalbital/ Caffeine (Fioricet) 2 tab PRN Q6HRS PRN PO MIGRAINE HEADACHE; Start 08/13/16 at 13:15; Stop 08/15/16 at 08:38; Status DC Hydromorphone HCl (Dilaudid) 1 mg PRN Q2HR PRN IVP PAIN Last administered on 06:11; Start 08/13/16 at 16:00; Stop 08/15/16 at 08:38; Status DC Sucralfate (Carafate) 1 gm QIDACHS PO Last administered on 08/15/16 06:16; Start 08/14/16 at 11:30 Enoxaparin Sodium (Lovenox 40mg Syringe) 40 mg Q24H SQ Last administered on 15:34; Start 08/14/16 at 15:00 Hydromorphone HCl (Dilaudid) 2 mg PRN Q4HRS PRN PO PAIN; Start 08/15/16 at 08: 45 Active Scripts Active [Bisacodyl] 10 MG Supp.rect 10 Mg NE PRN DAILY PRN Miralax (Polyethylene Glycol 3350) 17 Gm Powd.pack 17 Gm PO DAILY Reported Folic Acid 1 Mg Tablet 1 Tab PO DAILY Ambien (Zolpidem Tartrate) 10 Mg Tablet 1 Tab PO QHS Cozaar (Losartan Potassium) 50 Mg Tablet 50 Mg PO DAILY Alprazolam 0.5 Mg Tablet 1 Tab PO TID Oxycodone-Acetaminophen 10-325 (Oxycodone Hcl/Acetaminophen) 1 Each Tablet 1 Tab PO QID PRN Vitals/I & O Vital Sign - Last 24 Hours 08/14/16 08/14/16 08/14/16 08/14/16 10:57 11:00 15:00 18:46 Temp 98.5 98.5 98.5 98.5 Pulse 64 60 Resp 18 18 B/P (MAP) 126/55 (78) 115/61 (79) Pulse Ox 90 95 94 94 O2 Delivery Room Air Room Air Room Air Room Air 08/14/16 08/14/16 08/14/16 08/14/16 19:05 19:12 20:00 21:19 Temp 97.7 97.7 Pulse 54 54 Resp 18 B/P (MAP) 111/54 (73) 111/54 Pulse Ox 93 94 O2 Delivery Room Air Room Air Room Air 08/14/16 08/15/16 08/15/16 23:21 03:03 07:00 Temp 97.5 97.5 97.9 97.5 97.5 97.9 Pulse 63 77 40 Resp 18 18 18 B/P (MAP) 100/47 (64) 143/56 (85) 99/66 (77) Pulse Ox 100 100 93 O2 Delivery Room Air Room Air Room Air Intake and Output 08/14/16 08/14/16 08/15/16 15:00 23:00 07:00 Intake Total 700 ml Balance 700 ml MARY MENDEZ MD Aug 15, 2016 09:24
--- NOTE | 2016-08-15 10:57 | PDOC ---
MARIA ELENA SWAIN APRN 08/15/16 1057: CARDIO Progress Notes Date and Time Date of Service 08/15/16 Time of Evaluation 1110 Subjective Subjective: No Chest Pain, No shortness of breath, Other (c/o neck pain) Vitals Vitals Vital Signs Date Time Temp Pulse Resp B/P (MAP) Pulse Ox O2 Delivery O2 Flow Rate FiO2 08/15/16 07:00 97.9 40 18 99/66 (77) 93 Room Air 97.9 Weight Weight [ ] Input and Output Intake and Output Intake and Output 08/15/16 07:00 Intake Total 700 ml Balance 700 ml Intake Oral 700 ml # Voids 2 Laboratory Labs Laboratory Tests Test 08/14/16 11:15 Troponin I Quantitative < 0.017 ng/mL (0.000-0.055) Physical Exam HEENT: Neck Supple W Full Motion, Other (neck support in place ) Chest: Symmetric LUNGS: Clear to Auscultation Heart: S1S2, RRR, murmurs (soft systolic murmur ) Abdomen: Soft N/T Extremities: No Edema, No Calf Tenderness Neurology: alert, oriented, follow commands Assessment Assessment 1. Chest pain with atypical features; AMI ruled out. Pain most probably GI in origin. Echo underway to assess LV function/presence of WMA. 2. Hypertension: Well-controlled 3. Bradycardia; secondary to narcotics. Avoid AV isma blocking agents 4. Neck pain; per PCP Recommendations If echo WNL, may discharge from a CV standpoint and follow in our office PRN. TREY SARMIENTO MD 08/16/16 0830: CARDIO Progress Notes Assessment Assessment Patient seen and examined 08/15/16. Agree with [employer] CONTROL ROOM OPERATOR's assessment and plan. 2-D echo showed normal LV function without any wall motion abnormalities. Chest pain noncardiac and most probably GI etiology. Okay for discharge from cardiac standpoint. MARIA ELENA SWAIN APRN Aug 15, 2016 10:57 TREY SARMIENTO MD Aug 16, 2016 08:30
[2016-08-15 11:00] VITALS: BP 104/50
--- NOTE | 2016-08-15 11:19 | CARD ---
APPROVED REPORT EXAM: Two-dimensional and M-mode echocardiogram with Doppler and color Doppler. Other Information Quality : Average Rhythm : NSR INDICATION Chest Pain 2D DIMENSIONS RVDd2.5 (2.9-3.5cm)Left Atrium(2D)3.6 (1.6-4.0cm) IVSd0.9 (0.7-1.1cm)Aortic Root(2D)2.6 (2.0-3.7cm) LVDd4.9 (3.9-5.9cm)LVOT Diameter2.0 (1.8-2.4cm) PWd0.9 (0.7-1.1cm)LVDs3.9 (2.5-4.0cm) SV45.7 ml Aortic Valve AoV Peak Cal.141.2cm/sAoV VTI36.2cm AO Peak GR.8.0mmHgLVOT Peak Cal.108.3cm/s AO Mean GR.4mmHgAVA (VMAX)2.29cm2 Mitral Valve MV E Smbaaomm748.0cm/sMV DECEL [id number] MV A Hlgdkhqh01.7cm/sMV CUE41ya E/A Ratio1.3MV A Wekurkhl857gi MVA (PHT)3.14cm2 Tricuspid Valve TR P. Ibcsauao149li/sRAP WDAWIDJF4ahNb TR Peak Gr.04dnJtNQLL05pfJv Pulmonary Vein S1 Gawqxsmk78.7cm/sD2 Poaweqpp38.9cm/s PVa zttgnrlf226ohar LEFT VENTRICLE The left ventricle is normal size. There is normal left ventricular wall thickness. Left ventricle sy stolic function is normaL The Ejection Fraction is 50-55%. The left ventricular diastolic function an d filling is normal for age. There is no ventricular septal defect visualized. RIGHT VENTRICLE The right ventricle is normal size. The right ventricular systolic function is normal. ATRIA The left atrium size is normal. The right atrium size is normal. The interatrial septum is intact wit h no evidence for an atrial septal defect or patent foramen ovale as noted on 2-D or Doppler imaging. AORTIC VALVE The aortic valve is mildly calcified. The aortic valve is trileaflet. Doppler and Color Flow revealed no significant aortic regurgitation. There is no significant aortic valvular stenosis. MITRAL VALVE Mitral annular calcification is mild. There is no mitral valve stenosis. Doppler and Color Flow revea led trace to mild mitral regurgitation. TRICUSPID VALVE The tricuspid valve is normal in structure and function. Doppler and Color Flow revealed mild tricusp id regurgitation. The PA pressure was estimated at 30 mmHg. There is no tricuspid valve stenosis. PULMONIC VALVE The pulmonic valve is not well visualized. Doppler and Color Flow revealed no pulmonic valvular regur gitation. There is no pulmonic valvular stenosis. GREAT VESSELS The aortic root is normal in size. Normal pulmonary venous flow (Doppler). The IVC is normal in size and collapses >50% with inspiration. PERICARDIAL EFFUSION There is no evidence of significant pericardial effusion. Critical Notification Date: 08/15/2016 Time: 10:58 Other Discipline : Homa Nelson APRN Critical Value: Yes <Conclusion> The left ventricle is normal size. Left ventricle systolic function is normaL The Ejection Fraction is 50-55%. There is no significant aortic valvular stenosis. Doppler and Color Flow revealed no significant aortic regurgitation. Doppler and Color Flow revealed trace to mild mitral regurgitation. Doppler and Color Flow revealed mild tricuspid regurgitation. The PA pressure was estimated at 30 mmHg.
[2016-08-15] MEDS ORDERED: oxyCODONE/APAP 10/325 1 TAB TABLET PO PRN (12:00)
[2016-08-15] MEDS: ENOXAPARIN 40 MG/0.4 ML SYRINGE. SQ SCH (14:23)
[2016-08-15 15:00] VITALS: BP 97/46
[2016-08-20] MEDS ORDERED: METHOTREXATE SODIUM 2.5 MG TABLET PO SCH (09:00)
== END 2016-08-15 16:35 | disposition home or self-care (01) | DRG 392 ==
LOC: ER 21:59 → 4 NORTH 08-13 00:19
PROVIDERS: ADMIT Family Medicine; ATTEND Family Medicine
PROC: 3E0233Z Introduction of Anti-inflammatory into Muscle, Percutaneous Approach (ICD-10-PCS; principal; 2016-08-13)
PROC: 3E023BZ Introduction of Anesthetic Agent into Muscle, Percutaneous Approach (ICD-10-PCS; 2016-08-13)
DX: K21.9 Gastro-esophageal reflux disease without esophagitis (principal); F41.9 Anxiety disorder, unspecified; G89.29 Other chronic pain; I12.9 Hypertensive chronic kidney disease with stage 1 through stage 4 chronic kidney disease, or unspecified chronic kidney disease; J44.9 Chronic obstructive pulmonary disease, unspecified; M06.9 Rheumatoid arthritis, unspecified; M19.90 Unspecified osteoarthritis, unspecified site; M43.6 Torticollis; M47.812 Spondylosis without myelopathy or radiculopathy, cervical region; M79.7 Fibromyalgia; R11.2 Nausea with vomiting, unspecified; R00.1 Bradycardia, unspecified; T40.605A Adverse effect of unspecified narcotics, initial encounter; N18.3 Chronic kidney disease, stage 3 (moderate); Z82.49 Family history of ischemic heart disease and other diseases of the circulatory system; Z83.3 Family history of diabetes mellitus; Z87.01 Personal history of pneumonia (recurrent); Z90.49 Acquired absence of other specified parts of digestive tract; Z88.5 Allergy status to narcotic agent; Z88.8 Allergy status to other drugs, medicaments and biological substances; Y92.89 Other specified places as the place of occurrence of the external cause; Z90.710 Acquired absence of both cervix and uterus
CPT/HCPCS: 36415; 70450; 71010; 72125; 80053; 83880; 84484; 85027; 93005; 93306; 96374; 96375; 96376; J1030; J1170; J1650; J1885; J2405; J3010; J3490; J7512; 99285-25

== ENCOUNTER 2017-03-20 19:18 | Emergency (ER) | payer BC, MEDICAID ==
[2017-03-20] MEDS: IV NORMAL SALINE 1000ML BAG 1,000 ML IV (20:15)
[2017-03-20 20:48] LABS: ADD MAN DIFF? NO
[2017-03-20] MEDS: ACETAMINOPHEN 500 MG TABLET PO (20:49)
[2017-03-20 20:51] LABS: BASO % 1 % (0-3); EOS % 0 % (0-3); HEMATOCRIT 42.6 % (36.0-47.0); HEMOGLOBIN 14.1 g/dL (12.0-15.5); LYMPH % 19 % (24-48); MEAN CORPUSCULAR HEMOGLOBIN 29 pg (25-35); MEAN CORPUSCULAR HGB CONC 33 g/dL (31-37); MEAN CORPUSCULAR VOLUME 88 fL (79-100); MONO # 0.9 x10^3/uL (0.0-1.1); MONO % 17 % (0-9); NEUT # 3.4 x10^3uL (1.8-7.7); NEUT % 64 % (31-73); PLATELET COUNT 202 x10^3/uL (140-400); RED BLOOD COUNT 4.83 x10^6/uL (3.50-5.40); RED CELL DISTRIBUTION WIDTH 13.9 % (11.5-14.5); WHITE BLOOD COUNT 5.3 x10^3/uL (4.0-11.0)
[2017-03-20] MEDS: ONDANSETRON PF 4 MG/2 ML VIAL. IV (20:51)
[2017-03-20] MEDS: fentaNYL PF VIAL 100 MCG/2 ML VIAL IV ×2 (20:51→23:12)
[2017-03-20 21:01] LABS: PARTIAL THROMBOPLASTIN TIME 29 SEC (24-38)
[2017-03-20 21:06] LABS: ANION GAP 14 (6-14); BLOOD UREA NITROGEN 20 mg/dL (7-20); BUN/CREATININE RATIO 15 (6-20); CALCIUM 8.7 mg/dL (8.5-10.1); CARBON DIOXIDE 22 mmol/L (21-32); CHLORIDE 100 mmol/L (98-107); CREATININE 1.3 mg/dL (0.6-1.0); GFR 42.1; GLUCOSE 104 mg/dL (70-99); POTASSIUM 4.1 mmol/L (3.5-5.1); SODIUM 136 mmol/L (136-145)
[2017-03-20 21:11] LABS: ETHANOL < 10 mg/dL (0-10)
[2017-03-20 21:14] LABS: LACTIC ACID 0.9 mmol/L (0.4-2.0)
[2017-03-20 21:16] LABS: TROPONINI < 0.017 ng/mL (0.000-0.055)
[2017-03-20 21:20] LABS: ALBUMIN 3.6 g/dL (3.4-5.0); ALBUMIN/GLOBULIN RATIO 0.9 (1.0-1.7); ALK PHOS 74 U/L (46-116); ALT (SGPT) 39 U/L (14-59); AST (SGOT) 46 U/L (15-37); CREATINE KINASE 107 U/L (26-192); LIPASE 229 U/L (73-393); TOTAL BILIRUBIN 0.3 mg/dL (0.2-1.0); TOTAL PROTEIN 7.6 g/dL (6.4-8.2)
[2017-03-20 21:20] LABS: NT-PRO BNP 331 pg/mL (0-124); THYROID STIM HORMONE (TSH) 0.933 uIU/mL (0.358-3.74)
[2017-03-20 21:58] LABS: INFLUENZA A PATIENT NEGATIVE (NEGATIVE); INFLUENZA B PATIENT NEGATIVE (NEGATIVE); OBC FLU VALID
[2017-03-20] MEDS: LIDO:MAALOX:BENADRYL 1:1:1 180 ML BOTTLE. PO (23:00)
[2017-03-20] MEDS: BENZONATATE 100 MG CAPSULE. PO (23:06)
[2017-03-20] MEDS: DEXAMETHASONE SOD PHOS 20 MG/5 ML VIAL. IV (23:11)
[2017-03-20 23:13] LABS: BILIRUBIN,URINE NEGATIVE (NEG); CLARITY,URINE CLEAR; COLOR,URINE YELLOW; GLUCOSE,URINE NEGATIVE (NEG); NITRITE,URINE NEGATIVE (NEG); PH,URINE 5.5; PROTEIN,URINE NEGATIVE (NEG-TRACE); UROBILINOGEN,URINE 0.2 mg/dL (0.2 mg/dL)
[2017-03-20 23:19] LABS: BARBITURATES NEG (NEG); BENZODIAZEPINES POS (NEG); CANNABINOIDS NEG (NEG); COCAINE NEG (NEG); METHADONE NEG (NEG); OPIATES NEG (NEG); PHENCYCLIDINE NEG (NEG)
[2017-03-20 23:22] LABS: BACTERIA,URINE MODERATE /HPF (0-FEW); RBC,URINE OCC /HPF (0-2); SQUAMOUS EPITHELIAL CELL,UR MOD /LPF
[2017-03-20] MEDS: IPRATRPIUM/ALBUTEROL 0.5/2.5MG 3 ML NEBU. NEB (23:23)
[2017-03-20 23:26] LABS: AMPHETAMINE/METHAMPHETAMINE NEG (NEG); ETHANOL, URINE NEG (NEG)
[2017-03-21 06:12] LABS: NEGATIVE OBC STREP NEG; POSITIVE OBC STREP POS
== END 2017-03-20 23:51 | disposition home or self-care (01) ==
LOC: ER 23:51
DX: B34.9 Viral infection, unspecified (principal); J02.9 Acute pharyngitis, unspecified; R42 Dizziness and giddiness; M79.1 Myalgia; M25.50 Pain in unspecified joint; F41.9 Anxiety disorder, unspecified; M19.90 Unspecified osteoarthritis, unspecified site; J44.9 Chronic obstructive pulmonary disease, unspecified; M79.7 Fibromyalgia; I10 Essential (primary) hypertension; Z90.49 Acquired absence of other specified parts of digestive tract; Z90.710 Acquired absence of both cervix and uterus; Z87.01 Personal history of pneumonia (recurrent); Z88.5 Allergy status to narcotic agent; Z88.6 Allergy status to analgesic agent
CPT/HCPCS: 36415; 71045; 80053; 80307; 81001; 82550; 83605; 83690; 83735; 83880; 84443; 84484; 85025; 85610; 85730; 87070; 87086; 87804; 87804-59; 87880; 93005; 94640; 96361; 96365; 96375; 96376; 99285-25; G0480; J0690; J1100; J2405; J3010; J7030; J7620

== ENCOUNTER → 2020-11-16 | Outpatient (CLI) | payer BC, MEDICAID ==
[2017-03-20 23:34] VITALS: BP 102/53
[~2020-11-16] MED LIST changes: +ALBU2.5V8 INH; +AZIT250T PO; +BENZ100C PO; +DICL1TAB5 PO; +FOLI1TAB16 PO; +LOSA-73 PO; +METH2.5T PO; +ONDA4TAB10 PO; +OXYC1TAB20 PO; -OXYC1TAB9 PO
--- NOTE | 2020-11-16 16:34 | KCIC ---
2 views of the right foot without comparison for right foot pain, patient hurt a crunch in the great toe with bruising after slip on wet grass. FINDINGS: There is no fracture, dislocation, or acute osseous abnormality identified. Joints and soft tissues are grossly unremarkable. Large calcaneal enthesophyte is noted. Minimal degenerative change s. IMPRESSION: 1. No acute osseous abnormality. Electronically signed by: Osiel Baez MD (11/16/2020 4:32 PM) [id number]
== END ==
LOC: KCIC 10:48
PROVIDERS: ATTEND Family Medicine
DX: S92.911A Unspecified fracture of right toe(s), initial encounter for closed fracture (principal); M19.071 Primary osteoarthritis, right ankle and foot; X58.XXXA Exposure to other specified factors, initial encounter; Y93.89 Activity, other specified; Y92.89 Other specified places as the place of occurrence of the external cause; Y99.8 Other external cause status
CPT/HCPCS: 73620